=== PATIENT | female | born 1955 | race Caucasian/White ===

== ENCOUNTER → 2025-07-20 09:20 | Outpatient (BNVA) | payer BC, SELFPAY | PROVIDERS: PCP Nurse Practitioner Family; Visit Provider Nurse Practitioner Family | DX: I10 Essential (primary) hypertension (principal); R53.83 Other fatigue; R51.9 Headache, unspecified; G89.29 Other chronic pain | CPT/HCPCS: 80053; 80061; 84439; 84443; 85025 ==

== ENCOUNTER 2025-08-07 14:02 | Outpatient (CLI) | payer MEDICARE, SELFPAY ==
--- NOTE | 2025-08-07 14:30 | CT_ITS ---
WS: [id number] CT HEAD TECHNIQUE: Noncontrast CT of the head obtained from the skullbase to the vertex. CLINICAL INFORMATION: R51.9 - Headache, unspecified COMPARISON: None. DLP: 967.[address] scans at [facility] use at least one of these dose optimization techniques: automated exposure control; mA and/or kV adjustment per patient size (includes targeted exams where dose is matched to clinical indication); or iterative reconstruction. FINDINGS: No evidence of intracranial hemorrhage or mass effect. Ventricular system and basal cisterns are patent. Mild small vessel changes with mild parenchymal volume loss. No extra-axial fluid collections. No evidence of mass or mass effect. Prior postoperative changes LEFT partial mastoidectomy. RIGHT mastoid air cells are well aerated. Paranasal sinuses are well aerated. CT/CT head wo con* [id number] IMPRESSION: 1. No evidence of intracranial hemorrhage or mass effect. 2. No acute intracranial findings.
== END 2025-08-07 14:03 | disposition home or self-care (01) ==
LOC: RAD 14:04
PROVIDERS: PCP Nurse Practitioner Family; Visit Provider Nurse Practitioner Family
DX: I67.89 Other cerebrovascular disease (principal); G93.89 Other specified disorders of brain; Z98.890 Other specified postprocedural states
CPT/HCPCS: 70450